=== PATIENT | female | born 1955 | race Caucasian/White ===

== ENCOUNTER 2019-01-29 07:30 | Inpatient (IN) | payer OTHER ==
[2019-01-28 10:31] LABS: PLATELET COUNT 256 10^3/uL (150-400)
[2019-01-29] MEDS ORDERED: LR 1,000 ML IV ONE (07:52)
[2019-01-29] MEDS ORDERED: MIDAZOLAM 2 MG/2 ML VIAL IVP ONE (08:26)
[2019-01-29] MEDS ORDERED: DEXMEDETOMIDINE HCL 400 MCG in NS 100 ML IV ONE (08:30)
[2019-01-29] MEDS ORDERED: BUPIVACAINE 0.25% 30 ML SDV ONE (08:42)
[2019-01-29] MEDS ORDERED: BUPIVACAINE/EPI 0.25% 30 ML SDV ONE (08:42)
[2019-01-29] MEDS ORDERED: THROMBIN (BOVINE) 5,000 UNIT VIAL TP ONE ×3 (08:43→13:43)
[2019-01-29] MEDS ORDERED: CHLORHEXIDINE GLUC HIBICLENS 118 ML BTL TP ONE (08:43)
[2019-01-29] MEDS ORDERED: BACITRACIN 50,000 UNITS/10 ML SYR IRR ONE ×2 (08:44→14:00)
[2019-01-29] MEDS ORDERED: CITRATE DEXTROSE SOLN 500 ML BAG ONE (08:44)
[2019-01-29] MEDS ORDERED: fentaNYL 250 MCG/5 ML INJ ONE (09:49)
[2019-01-29] MEDS ORDERED: PROPOFOL/EMULSION 500 MG/50 ML BOTTLE IV ONE ×2 (09:50→13:08)
[2019-01-29] MEDS ORDERED: PROPOFOL 200 MG/20 ML VIAL ONE (09:50)
[2019-01-29] MEDS ORDERED: GLYCOPYRROLATE 0.2 MG/1 ML VIAL ONE (09:51)
[2019-01-29] MEDS ORDERED: PHENYLEPHRINE 10 MG/ML SDV ONE (09:51)
[2019-01-29] MEDS ORDERED: METOCLOPRAMIDE 10 MG/2 ML VIAL ONE (09:52)
[2019-01-29] MEDS ORDERED: ROCURONIUM 50 MG/5 ML VIAL ONE (09:52)
--- NOTE | 2019-01-29 09:54 | PDANEPAE ---
ANE Past Medical History - Cardiovascular History Hx Hypertension: Yes Hx Arrhythmias: No Hx Chest Pain: No Hx Coronary Artery / Peripheral Vascular Disease: No Hx CHF / Valvular Disease: No Hx Palpitations: No - Pulmonary History Hx COPD: No Hx Asthma/Reactive Airway Disease: No Hx Recent Upper Respiratory Infection: No Hx Oxygen in Use at Home: No Hx Sleep Apnea: No Sleep Apnea Screening Result - Last Documented: Positive - Neurologic History Hx Cerebrovascular Accident: No Hx Seizures: No Hx Dementia: No - Endocrine History Hx Diabetes: No - Renal History Hx Renal Disorders: No - Liver History Hx Hepatic Disorders: No - Neurological & Psychiatric Hx Hx Neurological and Psychiatric Disorders: Yes Neurological / Psychiatric History Comment: SCIATICA,WEAKNESS. NUEROPATHY. ANXIETY - Cancer History Hx Cancer: No - Congenital Disorder History Hx Congenital Disorders: No - GI History Hx Gastrointestinal Disorders: No - Other Health History Other Health History: HX OF CONCUSSION X2. EARLY CATARACT. BRIDGES SECURED DENTAL IMPLANTS. POST MENAPAUSAL - Chronic Pain History Chronic Pain: Yes - Surgical History Prior Surgeries: cervical fusion 2012. lumbar fusion 08/2013. 2007 TKA. 2011 TKA ANE Review of Systems Review of Systems: - Exercise capacity METS (RN): 3 METS ANE Patient History - Allergies Allergies/Adverse Reactions: No Known Allergies Allergy (Verified 01/25/19 14:09) - Home Medications Home medications: home medication list seen and reviewed Home Medications: Bio-Identical Hormone Replacement Cream 1 tonya TP DAILY 08/22/13 [Last Taken ] Acetaminophen [Tylenol ES 500 mg (*)] 1,000 mg PO Q6 PRN 01/25/19 [Last Taken ] Losartan/Hctz 50/12.5 [Hyzaar 50/12.5MG (*)] 1 tab PO DAILY 01/25/19 [Last Taken 01/28/19] - NPO status NPO Status: no food or drink >8 hours NPO Since - Liquids (Date): 01/28/19 NPO Since - Liquids (Time): 20:00 NPO Since - Solids (Date): 01/28/19 NPO Since - Solids (Time): 20:00 - Anes Hx Anes Hx: no prior problems - Smoking Hx Smoking Status: Former smoker - Family Anes Hx Family Hx Anesthesia Complications: none ANE Labs/Vital Signs - Labs Result Diagrams: 01/28/19 09:55 01/28/19 09:55 - Vital Signs Blood Pressure: 138/77 Heart Rate: 83 Respiratory Rate: 16 O2 Sat (%): 94 Height: 161.29 cm Weight: 104.326 kg ANE Physical Exam - Airway Neck exam: FROM, decreased ROM Mallampati Score: Class 2 Mouth exam: normal dental/mouth exam - Pulmonary Pulmonary: clear to auscultation - Cardiovascular Cardiovascular: regular rate and rhythym - ASA Status ASA Status: III ANE Anesthesia Plan Anesthesia Plan: general endotracheal anesthesia Lines/Monitors: arterial line
[2019-01-29] MEDS ORDERED: MIDAZOLAM 2 MG/2 ML VIAL ONE (10:46)
--- NOTE | 2019-01-29 10:52 | PDHPUP ---
History & Physical Update H&P update statement: This history and physical update is based on an assessment of the patient which was completed after admission or registration (within 24 hours), but prior to the surgery/procedure. H&P update: no change in patient's condition since H&P completed
--- NOTE | 2019-01-29 10:54 | POSTOPPROG ---
Post Op Note Date of Operation: 01/29/19 Surgeon: Rafi Saeed Steel Fitter: Dandy Haywood PAC Anesthesiologist: Eugenie Anesthesia: GET(General Endotracheal) Pre-op Diagnosis: L5/S1 DJD, stenosis Post-op Diagnosis: Same Indication: Low back and right>left leg pain Procedure: Hardware removal L2-5 and L5/S1 TLIF, L4-S1 fusion Findings: severe L5/S1 DJD Inf/Abcess present in the surg proc area at time of surgery?: No EBL: 100-500 Complications: none Drains: Emre Hutson (to bulb suction) Specimen(s): none
[2019-01-29] MEDS ORDERED: RANITIDINE 50 MG/2 ML VIAL ONE (10:57)
[2019-01-29] MEDS ORDERED: ceFAZolin 2 GM/DEXTROSE 100 ML IV ONE (10:59)
[2019-01-29] MEDS ORDERED: TRANEXAMIC ACID 1,000 MG in NS 100 ML IV ONE (12:35)
[2019-01-29] MEDS ORDERED: HYDROmorphONE/DILAUDID 2 MG/ML INJ ONE (13:36)
[2019-01-29] MEDS ORDERED: ceFAZolin 1 GM VIAL ONE ×2 (14:04)
[2019-01-29] MEDS ORDERED: morphINE PF 0.2 MG in SYRINGE INTRATHECAL 1 SYR IT ONE (14:12)
[2019-01-29] MEDS ORDERED: fentaNYL 50 MCG in SYRINGE INTRATHECAL 1 SYR IT ONE (14:12)
[2019-01-29] MEDS ORDERED: ONDANSETRON 4 MG/2 ML VIAL ONE (14:19)
[2019-01-29] MEDS ORDERED: ALBUTEROL 3 ML DEYVIAL IH PRN (14:57)
[2019-01-29] MEDS ORDERED: LR 500 ML IV PRN (14:57)
[2019-01-29] MEDS ORDERED: PHENYLEPHRINE HCL 100 MCG/ML SYR IVP PRN (14:57)
[2019-01-29] MEDS ORDERED: MEPERIDINE 25 MG/0.5 ML AMP IVP PRN (14:57)
[2019-01-29] MEDS ORDERED: METOCLOPRAMIDE 10 MG/2 ML VIAL IVP PRN (14:57)
[2019-01-29] MEDS ORDERED: ONDANSETRON 4 MG/2 ML VIAL IVP PRN ×2 (14:57→15:20)
[2019-01-29] MEDS ORDERED: HYDROmorphONE/DILAUDID 1 MG/ML INJ IVP PRN (14:57)
[2019-01-29] MEDS ORDERED: DIAZEPAM 10 MG/2 ML SYR IVP PRN (14:57)
[2019-01-29] MEDS ORDERED: PROMETHAZINE HCL 25 MG/ML INJ IVP PRN (14:57)
[2019-01-29] MEDS ORDERED: DEXAMETHASONE 4 MG/ML VIAL IVP PRN (14:57)
[2019-01-29] MEDS ORDERED: NALOXONE HCL 0.4 MG/ML INJ IVP PRN (14:57)
[2019-01-29] MEDS ORDERED: fentaNYL 100 MCG/2 ML INJ IVP PRN (14:57)
[2019-01-29] MEDS ORDERED: LACTULOSE 20 GM/30 ML UDCUP PO PRN (15:20)
[2019-01-29] MEDS ORDERED: BISACODYL 10 MG SUPP PR PRN (15:20)
[2019-01-29] MEDS ORDERED: ONDANSETRON DISINTEGRATING 4 MG TAB PO PRN (15:20)
[2019-01-29] MEDS ORDERED: diphenhydrAMINE 25 MG CAP PO PRN (15:20)
[2019-01-29] MEDS ORDERED: MAGNESIUM HYDROXIDE 30 ML UDCUP PO PRN (15:20)
[2019-01-29] MEDS ORDERED: NS 1,000 ML IV SCH (15:30)
--- NOTE | 2019-01-29 15:36 | SOAPPROG ---
SOAP Progress Note Assessment/Plan: POST OP CHECK: Assessment: Doing well s/p L2-5 hardware removal, L5/S1 TLIF and L4-S1 fusion Plan: CPM in PACU ROXANE to bulb suction transfer to floor per protocol 01/29/19 15:31 Subjective: Groggy, but opens eyes to voice and follows commands easily. Objective: Vital Signs Temp Pulse Resp BP Pulse Ox 36.9 C 83 16 138/77 H 94 01/29/19 07:56 01/29/19 09:53 01/29/19 09:53 01/29/19 09:53 01/29/19 09:53 Laboratory Results 01/28/19 09:55 01/28/19 09:55 Vitals: BP: 94/59 HR: 83 O2: 98 Neuro: MACIEL, sens +LT follows commands x 4 ICD10 Worksheet Patient Problems: Problems Problem Status Onset S/P lumbar spinal fusion Acute
--- NOTE | 2019-01-29 15:41 | POSTANESTH ---
Post Anesthetic Evaluation Cardiovascular Status: Normal, Stable Respiratory Status: Normal, Stable Level of Consciousness/Mental Status: Can Participate in Eval Pain Control: Adequate, Prn Tx Ordered Nausea/Vomiting Control: Adequate, Prn Tx Ordered Complications Possibly Related to Anesthesia: None Noted
--- NOTE | 2019-01-29 18:11 | PDMN ---
Medical Necessity Medical necessity: 63 yo s/p L5/S1 TLIF, posterior lum summers fusion, CPT 51235, MCG S820 Lumbar Fusion, 2 days, [facility] IP only
[2019-01-29] MEDS: POLYETHYLENE GLYCOL 3350 17 GM PKT PO SCH ×2 (18:18→22:06)
[2019-01-29] MEDS: METHOCARBAMOL 750 MG TAB PO PRN (20:03)
[2019-01-29] MEDS: FAMOTIDINE 20 MG TAB PO SCH (20:03)
[2019-01-29] MEDS: SENNOSIDES/DOCUSATE SODIUM TAB PO SCH (20:03)
[2019-01-29] MEDS: ceFAZolin 2 GM/DEXTROSE 100 ML IV SCH (20:04)
[2019-01-29] MEDS: ACETAMINOPHEN 500 MG TAB PO SCH (22:05)
[2019-01-29] MEDS: GABAPENTIN 300 MG CAP PO SCH (22:05)
[2019-01-30] MEDS: ceFAZolin 2 GM/DEXTROSE 100 ML IV SCH (03:44)
[2019-01-30] MEDS: ACETAMINOPHEN 500 MG TAB PO SCH ×3 (05:33→21:16)
[2019-01-30] MEDS: GABAPENTIN 300 MG CAP PO SCH ×3 (05:33→21:16)
[2019-01-30 06:16] LABS: PLATELET COUNT 177 10^3/uL (150-400)
--- NOTE | 2019-01-30 07:39 | SOAPPROG ---
SOAP Progress Note Assessment/Plan: Assessment: POD #1. Doing well s/p L2-5 hardware removal, L5/S1 TLIF and L4-S1 fusion Plan: continue ROXANE to bulb suction PT/OT in [facility] Xrays L spine today Subjective: Sitting up in bed ordering breakfast. Pain well controlled States her leg pain is better. Objective: Vital Signs Temp Pulse Resp BP Pulse Ox 36.3 C 79 18 107/74 93 01/30/19 07:23 01/30/19 07:23 01/30/19 07:23 01/30/19 07:23 01/30/19 07:23 Laboratory Results 01/30/19 05:14 01/30/19 05:14 01/29/19 01/30/19 01/31/19 05:59 05:59 05:59 Intake Total 5950 1100 Output Total 4350 90 Balance 1600 1010 Neuro: MACIEL, Sens +LT Dressing: partially saturated with dried blood ROXANE: 90 ML this AM ICD10 Worksheet Patient Problems: Problems Problem Status Onset S/P lumbar spinal fusion Acute
[2019-01-30] MEDS: FAMOTIDINE 20 MG TAB PO SCH ×2 (09:14→20:26)
[2019-01-30] MEDS: LOSARTAN/HCTZ 50/12.5 1 TAB PO SCH (09:15)
[2019-01-30] MEDS: SENNOSIDES/DOCUSATE SODIUM TAB PO SCH ×2 (09:15→20:27)
[2019-01-30] MEDS: POLYETHYLENE GLYCOL 3350 17 GM PKT PO SCH ×3 (09:17→21:17)
[2019-01-30] MEDS: ENOXAPARIN 40 MG/0.4 ML SYR SC SCH (09:17)
[2019-01-30] MEDS: [UNRECOGNIZED DRUG - REMARK] TP SCH (12:28)
[2019-01-30] MEDS: METHOCARBAMOL 750 MG TAB PO PRN ×2 (14:45→20:25)
--- NOTE | 2019-01-30 14:58 | ASMTCMCOM ---
CM Note CM Note Notes: Pt had planned surgery for stenosis. OT/PT rec home. Anticipate pt will d/c home with family support when medically stable. No CM d/c needs identified. CM available for changes/needs. Date Signed: 01/30/2019 02:57 PM Electronically Signed By:JEANNE Lowery
[2019-01-30] MEDS: oxyCODONE IR 5 MG TAB PO PRN ×2 (20:26→21:16)
[2019-01-31] MEDS: oxyCODONE IR 5 MG TAB PO PRN (02:44)
[2019-01-31] MEDS: GABAPENTIN 300 MG CAP PO SCH (05:00)
[2019-01-31] MEDS: METHOCARBAMOL 750 MG TAB PO PRN ×2 (05:03→10:53)
[2019-01-31] MEDS: ACETAMINOPHEN 500 MG TAB PO SCH (05:14)
[2019-01-31 05:16] LABS: PLATELET COUNT 160 10^3/uL (150-400)
[2019-01-31 07:52] VITALS: BP 106/90
--- NOTE | 2019-01-31 08:15 | NEUSURGPN ---
Date of Surgery: 01/29/19 Post Op Day: 2 Assessment/Plan: Assessment: POD #2 Doing well s/p L2-5 hardware removal, L5/S1 TLIF and L4-S1 fusion Plan: -continue ROXANE to bulb suction, will dc home with ROXANE -PT/OT in [facility] -Xrays lumbar show stable hardware placement -Ok to discharge home -Change dressing prior to discharge -Instructed patient to call office tomorrow to report ROXANE output and for further instruction Discussed patient with Dr Bingham Subjective: Sitting in chair, feeling good. Some nerve pain in legs with laying down Objective: AxOx4 MAEx4 5/5 BLE Sensation intact to light touch BLE Dressing dry drainage ROXANE patent Neuro Check Frequency: per routine Urinary Catheter in Place: No - Physician Patient Seen by : Christophe Neurosurgery Physical Exam - Vitals, I&O, Labs I and O 01/30/19 01/31/19 02/01/19 05:59 05:59 05:59 Intake Total 5950 2300 Output Total 4350 2900 Balance 1600 -600 Weight 104.326 kg Intake: Oral (ml) 2750 1200 IV Intake (ml) 3000 IV Infused (ml) 200 1100 Ns 1,000 ml @ 75 mls/hr 900 IV CONT JACKLYN Rx#: [id number] ceFAZolin 2 GM/DEXTROSE 100 100 ml @ 200 mls/hr IV ONCALL ONE Rx#:[id number] ceFAZolin 2 GM/DEXTROSE 100 200 100 ml @ 200 mls/hr IV Q8H JACKLYN Rx#:[id number] Output: Urine (ml) 3700 2250 Catheter 3700 Toilet 2250 Estimated Blood Loss (ml) 500 Emesis (ml) 0 ROXANE Drain Output (ml) 150 650 #1 Right Back Emre 150 650 Hutson Other: Intake Quantity Yes Sufficient Number of Voids Toilet 1 Vital Signs Temp Pulse Resp BP Pulse Ox 37.4 C 95 12 106/90 H 91 L 01/31/19 07:51 01/31/19 07:51 01/31/19 07:51 01/31/19 07:51 01/31/19 07:51 Laboratory Results 01/31/19 04:50 01/30/19 05:14 ICD10 Worksheet Patient Problems: Problems Problem Status Onset S/P lumbar spinal fusion Acute
[2019-01-31] MEDS: SENNOSIDES/DOCUSATE SODIUM TAB PO SCH (08:48)
[2019-01-31] MEDS: ENOXAPARIN 40 MG/0.4 ML SYR SC SCH (08:48)
[2019-01-31] MEDS: FAMOTIDINE 20 MG TAB PO SCH (08:48)
[2019-01-31] MEDS: POLYETHYLENE GLYCOL 3350 17 GM PKT PO SCH (08:48)
[2019-01-31] MEDS: LOSARTAN/HCTZ 50/12.5 1 TAB PO SCH (09:49)
--- NOTE | 2019-01-31 12:04 | ASMTLACE ---
LACE Length of stay for Answers: 3 days current admission Acuity / Level of Answers: Yes Care: Did the patient have an inpatient admission? Comorbidities - select Answers: Opioid dependence all that apply / Chronic pain Other Notes: HTN # of Emergency department Answers: 0 visits in the last 6 months Social determinants Answers: Mental health diagnosis (anxiety, depression, pers onality disorders, etc.) Score: 14 Date Signed: 01/31/2019 12:03 PM Electronically Signed By:JEANNE Lowery
[2019-01-31] MEDS: [UNRECOGNIZED DRUG - REMARK] TP SCH (14:33)
--- NOTE | 2019-02-05 11:42 | GOP ---
[f rep st] OPERATIVE REPORT DATE OF OPERATION: 01/29/2019 SURGEON: Rafi Saeed MD NEUROSURGEON: Rafi Saeed MD CURB SUPERVISOR: CARROLL Kahn ANESTHESIA: General endotracheal. PREOPERATIVE DIAGNOSIS: Severe adjacent level degeneration and spinal stenosis and lateral recess an d neural foraminal encroachment at L5-S1 status post prior L2 to 5 decompression and fusion with inst rumentation. Obesity. Failed conservative care. POSTOPERATIVE DIAGNOSIS: Severe adjacent level degeneration and spinal stenosis and lateral recess a nd neural foraminal encroachment at L5-S1 status post prior L2-5 decompression and fusion with instru mentation. Obesity. Failed conservative care. PROCEDURE PERFORMED: Removal of L2 through L5 posterior segmental (pedicle screw) fixation and reins ertion of instrumentation and fusion from L4 to S1 with pedicle screws and axle device. L5-S1 far la teral transpedicular decompression with an L5-S1 posterior/transforaminal lumbar interbody fusion wit h 2 structural PEEK interbody spacers, local autograft, and bone morphogenic protein. Use of intraop erative microscopy, fluoroscopy, and computer volumetric stereotactic navigation with intraoperative neurophysiologic testing. Injection of intrathecal narcotic analgesics for postoperative pain contro l. FINDINGS: ESTIMATED BLOOD LOSS: 350 cc. INDICATIONS: The patient is a 63-year-old woman with intractable low back pain and right greater artis n left lower extremity radicular discomfort after a prior L2 to L5 instrumented fusion many years ago . She has severe adjacent level degeneration, spinal stenosis with lateral recess and foraminal impi ngement position required destabilization requiring a destabilizing decompression and extension of he r instrumentation and fusion down to L5-S1. DESCRIPTION OF PROCEDURE: After informed consent was obtained, the patient was taken to the operatin g room and placed in the prone position on the Emre table. The thoracolumbosacral areas were prep ped and draped in a sterile fashion. After fluoroscopic localization of the correct levels, the subc utaneous and intramuscular tissues were infiltrated with local anesthesia. A midline linear incision was then created from approximately L2 to S1. This was carried down to the fascial layer, which was then incised using monopolar electrocautery and carried down a subfascial p sanford along the spinous processes and lamina bilaterally. Intraoperative fluoroscopy was again utiliz ed to verify the correct levels. The prior instrumentation was carefully identified and removed in s tandard fashion. Note that due to the patient's obesity and increased abdominal pressure, there was venous congestion and increased bleeding, and the time it took for the exposure and the procedure was approximately 2 to 3 times as long as normal because of this and was much more difficult. After removing the instrumentation and microscope was brought in, and a right-sided far lateral trans pedicular decompression was performed with complete unroofing of the L5-S1 facet joint with a thoroug h decompression of the central canal and lateral recess. Redo L4-5 posterior hemilaminectomy and for aminotomy was also performed in conjunction with a L5-S1 decompression. Following adequate decompres celina, the [email or web address] Neuron[employer]ational System was brought in, and using computer volumetric stereotactic navigation, pedicle screws were placed at L4 through S1 bilaterally. Each individual screw was test ed neurophysiologically with monopolar electrostimulation and interpretation of the potentials by the surgeon. A judy was then placed and secured under distraction at the L5-S1 level, during which time a complete diskectomy was performed and preparation of the endplates and placement of 2 structural PEEK interbod y spacers, local autograft, and bone morphogenic protein for an L5-S1 posterior/transforaminal lumbar interbody fusion. The short judy was then removed and longer judy extending from L4 to S1 was placed and secured to the specified torque by the company. An axial device was then placed at the L5-S1 lev el in order to hopefully avoid hardware failure and nonunion. The remaining facet joints, and transv erse processes, especially on the left were then extensively decorticated, and the residual local aut ograft along with bone morphogenic protein and morselized allograft was placed out laterally for post erolateral fusion at the L4 through S1 levels. A drain was then placed. The subcutaneous and intramuscular tissues were infiltrated with local anes thesia. 200 mcg of Duramorph, along with 50 mcg of fentanyl were injected intrathecally for postoper ative pain control, and the wound was closed in a layered fashion using interrupted Vicryl sutures, f ollowed by Steri-Strips on the skin. COMPLICATIONS: None. DISPOSITION: The patient was extubated and transferred to the recovery room in stable condition. /[id number]/MODL
== END 2019-01-31 11:19 | disposition home or self-care (01) | DRG 455 ==
LOC: F3N 07:30
PROVIDERS: ADMIT Neurological Surgery; ATTEND Neurological Surgery
DX: M48.07 Spinal stenosis, lumbosacral region (principal); M51.36 Other intervertebral disc degeneration, lumbar region; M51.26 Other intervertebral disc displacement, lumbar region; Z98.1 Arthrodesis status; E66.9 Obesity, unspecified; I10 Essential (primary) hypertension; G47.33 Obstructive sleep apnea (adult) (pediatric); Z87.891 Personal history of nicotine dependence
CPT/HCPCS: 97116-GP; 97161-GP; 97166-GO; 97535-GO; C1713; J0690; J1170; J1650; J2250; J2274; J2370; J2405; J2704; J2765; J2780; J3010